=== PATIENT | female | born 1995 | race Caucasian/White ===

== ENCOUNTER 2021-09-09 09:35 | Outpatient (CLI) | payer BC, MEDICAID, SELFPAY ==
[2021-09-09 09:35] VITALS: BMI 39.2
[2021-09-09 10:07] VITALS: BP 119/78; PULSE 93; TEMP 36.1
[2021-09-09 10:30] VITALS: BP 122/71; PULSE 90
[2021-09-09 10:31] LABS: Basophils % 0.2 %; Eosinophils % 0.4 %; Hematocrit 35.6 % (37.0-47.0); Hemoglobin 10.7 g/dL (11.5-15.3); Lymphocytes # 1.5 10^3/uL (0.8-4.8); Lymphocytes % 13.5 %; Mean Corpuscular HGB Conc 30.1 g/dL (30.0-36.0); Mean Corpuscular Hemoglobin 22.5 pg (28.0-34.0); Mean Corpuscular Volume 74.9 fl (81-99); Mean Platelet Volume 10.9 fL (7.4-10.4); Monocytes # 0.6 10^3/uL (0.2-0.9); Monocytes % 5.7 %; Neutrophils # 8.58 10^3/uL (1.8-7.7); Neutrophils % 79.1 %; Nucleated Red Blood Cells % 0 %; Platelet Count 319 10^3/cmm (130-400); Red Blood Count 4.75 10^6/uL (4.1-5.3); Red Cell Distribution Width 15.6 % (12.1-15.1); White Blood Count 10.8 10^3/uL (4.0-10.0)
[2021-09-09 10:38] LABS: Glucose Urine UA Norm (Normal); Ketones Urine 1+ (Negative); Protein Urine Neg (Negative); Specific Gravity, Urine 1.015 (1.005-1.030); Urine Appearance SL Hazy (CLEAR); Urine Color Yellow (Yellow); pH Urine 6.5 (5-7)
[2021-09-09 10:39] LABS: Add Urine Microscopic? YES; Bilirubin Urine Neg (Negative); Blood Urine Neg (Negative); Leukocyte Esterase Urine 1+ (Negative); Nitrate Urine Negative (Negative); Urobilinogen Urine 1 mg/dL (Negative)
[2021-09-09 10:43] VITALS: BP 112/66; PULSE 97
[2021-09-09 10:48] LABS: RBC Urine 0-4 /hpf (0-2); WBC Urine 15-25 /hpf (0-5)
[2021-09-09 10:49] LABS: Alanine Aminotransferase 16 U/L (0-33); Albumin Level 3.2 g/dL (3.5-5.2); Alkaline Phosphatase 242 IU/L (35-105); Anion Gap 18.1 (5-19); Aspartate Amino Transferase 15 U/L (0-32); Bacteria Urine 1+ /hpf; Blood Urea Nitrogen 7 mg/dL (6-20); Calcium 8.2 mg/dL (8.5-10.5); Carbon Dioxide 17 mmol/L (22-29); Chloride 104 mmol/L (98-107); Coarse Granular Casts Urine RARE /lpf; Globulin 3.6 g/dL (1.3-4.6); Glomerular Filtration Rate 194.5 mL/min (90-130); Glucose 78 mg/dL (65-115); Mucus Urine TRACE /hpf; Osmolality Calculated 277 mOsm/kg (285-295); Potassium 4.1 mmol/L (3.5-5.1); Sodium 135 mmol/L (136-145); Total Bilirubin 0.4 mg/dL (0.15-1.2); Total Protein 6.8 g/dL (6.6-8.7); Uric Acid 3.2 mg/dL (2.4-5.7)
[2021-09-09 10:50] LABS: Add Urine Culture? Yes
[2021-09-09 10:52] LABS: Urine Creatinine 124 mg/dL (28-217)
[2021-09-09 10:57] LABS: UPRO/UCREAT Ratio 0.29 mg/mg CR; Urine Protein Random 36 mg/dL
[2021-09-09 10:58] VITALS: BP 113/65; PULSE 88
== END 2021-09-09 11:15 | disposition home or self-care (01) ==
LOC: OPOB 09:44 → OBGYN 09:45
PROVIDERS: Visit Provider Obstetrics & Gynecology
DX: O16.9 Unspecified maternal hypertension, unspecified trimester (principal); Z3A.00 Weeks of gestation of pregnancy not specified
CPT/HCPCS: 36415; 59025; 80053; 81000; 81001; 82570; 84156; 84550; 85025; 87086; 99211

== ENCOUNTER 2021-09-17 03:00 | Inpatient (IN) | payer BC, MEDICAID, SELFPAY ==
[2021-09-17] VITALS (41 sets, daily range): BP systolic 94–150; BP diastolic 52–94; PULSE 69–105; RESP 15–18; TEMP 36.1–37.3; O2SAT 97–100; BMI 44.3
[2021-09-17] MEDS: ampicillin 2,000 MG in sodium chloride 0.9% (plus) 50 ML 100 MG IV (02:44)
[2021-09-17] MEDS: lactated ringers 1,000 ML 999 ML IV (02:44)
[2021-09-17 02:54] LABS: Basophils % 0.2 %; Eosinophils % 0.3 %; Hematocrit 34.9 % (37.0-47.0); Hemoglobin 10.5 g/dL (11.5-15.3); Lymphocytes # 2.1 10^3/uL (0.8-4.8); Lymphocytes % 15.3 %; Mean Corpuscular HGB Conc 30.1 g/dL (30.0-36.0); Mean Corpuscular Hemoglobin 22.7 pg (28.0-34.0); Mean Corpuscular Volume 75.4 fl (81-99); Mean Platelet Volume 11.5 fL (7.4-10.4); Monocytes # 1.1 10^3/uL (0.2-0.9); Monocytes % 7.9 %; Neutrophils # 10.25 10^3/uL (1.8-7.7); Neutrophils % 75.4 %; Nucleated Red Blood Cells % 0 %; Platelet Count 344 10^3/cmm (130-400); Red Blood Count 4.63 10^6/uL (4.1-5.3); White Blood Count 13.6 10^3/uL (4.0-10.0)
[2021-09-17] MEDS: ondansetron 2 mg/ML SDV 2 mL 4 MG IVP (03:04)
[2021-09-17 04:16] LABS: Amphetamines Screen Urine Negative (Negative); Barbiturates Screen Urine Negative (Negative); Benzodiazepines Screen Urine Negative (Negative); Cocaine Screen Urine Negative (Negative); Opiate Screen Urine Negative (Negative); PCP Screen Urine Negative (Negative); THC Screen Urine Negative (Negative)
--- NOTE | 2021-09-17 04:20 | ANES.PROC ---
Anesthesia Procedures Procedure/Date: 09/17/21 labor epidural Epidural: Time Out Performed: Yes Consents Signed: Procedure Consent Consent: from patient, risks and benefits reviewed and patient agrees to proceed Lumbar Level: L3-L4 Epidural position: sitting Epidural procedure: sterile prep of area, 1% lidocaine to numb the area, 18 g needle, negative for paresthesia passed, test dose given, 1.5% xylocaine 1:200k epi, placed PCEA, no systemic response, sterile dressing applied, L.U.D. no apparent complications and 0.2% Ropiavacaine @ mls/hr (13) Additional Comments: OLAYINKA at 7.5 taped at 15 at skin
--- NOTE | 2021-09-17 04:21 | P.ANESASSM_ITS ---
Pre-Anesthetic Assessment Pre-Anesthetic Assessment: Height/Weight: Height 1.7 m Weight 128.367 kg Temp Pulse Resp BP Pulse Ox 98.5 F 88 15 137/70 99 09/17/21 02:19 09/17/21 04:19 09/17/21 02:19 09/17/21 04:19 09/17/21 04:14 Preop Diagnosis: IUP Proposed Procedure: labor epidural Was Beta Abimael taken within 24 hours: N/A Was Clonidine taken within 24 hours: N/A Social: Social History: No alcohol and No tobacco Exam: Pre-Anes Outpt Exam: alert and oriented x 3 Airway: Submandibular: WNL Cervical ROM: WNL MP: 3 Dentition: Full History/ROS: No significant complaints Anesthetic Plan: ASA status: 2 Anesthesia: Anesthesia Evaluation and Regional (specify below) (labor epidural) Risk of > 500 ml blood loss (7ml/kg in children): No Meds/Allergies Current Medications: Current Medications Generic Name Dose Route Start Last Admin Trade Name Freq PRN Reason Stop Dose Admin Lactated Ringer's 1,000 mls @ 999 m ls/hr 09/17/21 02:24 09/17/21 02:44 Lactated Ringers IV 999 mls/hr .Q1H1M PRN Administration LABOR PAIN Ondansetron HCl 4 mg 09/17/21 02:19 09/17/21 03:04 Ondansetron 2 Mg /Ml Sdv 2 Ml IVP 4 mg Q4H PRN Administration NAUSEA AND VOMITI NG PFSH Anesthesia PFSH: Medical History (Updated 09/12/21 @ 20:12 by Cony Russell MD) No pertinent past medical history Surgical History (Updated 09/12/21 @ 20:12 by Cony Russell MD) No pertinent past surgical history Family History (Updated 09/09/21 @ 08:13 by Analisa Noriega LPN) Mother Hypertension Hypothyroidism Denies family history of Diabetes CAD (coronary artery disease) Clotting disorder Hyperlipidemia Chronic kidney disease (CKD) Bleeding disorder Cancer Stroke Female Reproductive History: : 3 Data Anesthesia CBC & Chem 7: 09/17/21 02:20 Other Labs: Laboratory Results - last 48 hr 09/17/21 09/17/21 02:20 03:38 WBC 13.6 H RBC 4.63 Hgb 10.5 L Hct 34.9 L MCV 75.4 L MCH 22.7 L MCHC 30.1 RDW 16.0 H Plt Count 344 MPV 11.5 H Neut % (Auto) 75.4 Lymph % (Auto) 15.3 [place] % (Auto) 7.9 Eos % (Auto) 0.3 Baso % (Auto) 0.2 Neut # (Auto) 10.25 H Lymph # (Auto) 2.1 [place] # (Auto) 1.1 H Eos # (Auto) 0.0 Baso # (Auto) 0.0 Nucleated RBC % (auto) 0 Nucleated RBCs # 0.0 Urine Opiates Screen Negative Ur Barbiturates Screen Negative Ur Phencyclidine Scrn Negative Ur Amphetamines Screen Negative U Benzodiazepines Scrn Negative Urine Cocaine Screen Negative U Marijuana (THC) Screen Negative Cardiac Studies: No Data to Display
--- NOTE | 2021-09-17 04:53 | PM.OPHPUD ---
Labor & Delivery H&P Update Date of Procedure: September 17, 2021 Date H&P Performed: 09/16/21 H&P update information: I have reviewed H&P completed within last 30 days, I have examined patient prior to procedure and Changes to prior documentation as noted here Changes to previous documentation: The patient has made cervical change since her exam earlier today. SVE: /-1 Admission Diagnosis: Preop diagnosis: IUP @38w6d Related Problem List Diagnoses (1) Normal : (2) Consultation for sterilization:
--- NOTE | 2021-09-17 05:00 | PM.DELIVERY ---
Delivery Note: Date of delivery: September 17, 2021 Pre-delivery diagnoses: iup@38w6d, active labor Post-delivery diagnoses: same Procedure: Op report anesthesia: Epidural Delivering Physician: [email or web address] Estimated blood loss (mL): 5 Findings: term male in the straight OA presentation Pre-Delivery Course: The patient was admitted in active labor. She had a GBS swab done a week ago, but no results are reported. She was started on GBS prophylaxis. She received an epidural for pain management. She had SROM and her cervix was found to be complete. This was a precipitous, physician attended delivery, as the patient had only been in the hospital for about 2 hours Delivery: The patient had complete cervical dilation and began to push. The head delivered in the straight OA position over an intact perineum under epidural anesthesia. The nose and mouth were bulb suctioned. The shoulders and body delivered atraumatically. The baby was placed onto the mother's abdomen. The cord was clamped and cut. Cord blood was obtained. The placenta delivered spontaneously. It was inspected and found to be intact. Inspection of the perineum revealed no lacerations. Estimated blood loss 5 mL. Apgars on baby were 8 at 1 minute and 9 at 5 minutes. Weight of baby is pending. Mother and baby were stable post delivery. History History History 3 Term 2 Miscarriages/Ectopic 0 0 Living Children 2 A&P Assessment and plan (1) Normal : Status: Acute (2) Consultation for sterilization: Status: Acute Coding Level of Care Code Acute Installer Interior Assemblies for [facility] Fwd Diagnoses Normal Z34.90 Consultation for sterilization Z30.09
[2021-09-17 06:17] LABS: Adenovirus Not Detected (NOT DETECT); Chlamydia Pneumoniae Not Detected (NOT DETECT); Coronavirus 229E,HKU1,NL63,OC4 Not Detected (NOT DETECT); Human Metapneumovirus Not Detected (NOT DETECT); Human Rhinovirus/Enterovirus Not Detected (NOT DETECT); Influenza A Not Detected (NOT DETECT); Influenza A H1 Not Detected (NOT DETECT); Influenza A H1-2009 Not Detected (NOT DETECT); Influenza A H3 Not Detected (NOT DETECT); Influenza B Not Detected (NOT DETECT); Mycoplasma Pneumoniae Not Detected (NOT DETECT); Parainfluenza Virus Type 1 Not Detected (NOT DETECT); Parainfluenza Virus Type 2 Not Detected (NOT DETECT); Parainfluenza Virus Type 3 Not Detected (NOT DETECT); Parainfluenza Virus Type 4 Not Detected (NOT DETECT); Respiratory Syncytial Virus A Not Detected (NOT DETECT); Respiratory Syncytial Virus B Not Detected (NOT DETECT); SARS-COV-2 Not Detected (NOT DETECT)
--- NOTE | 2021-09-17 11:14 | ANES.PREANE2 ---
Pre-Anesthetic Assessment Pre-Anesthetic Assessment: Height/Weight: Height 1.7 m Weight 128.367 kg Temp Pulse Resp BP Pulse Ox 98.1 F 80 15 131/75 100 09/17/21 05:52 09/17/21 09:49 09/17/21 02:19 09/17/21 09:49 09/17/21 04:29 Preop Diagnosis: IUP @38w6d, desires sterilization Proposed Procedure: Operation Date: 09/17/21 11:30 Proposed Procedures p Bilateral Tubal Ligation(Not Applicable) - Cony Russell MD Was Beta Abimael taken within 24 hours: N/A Was Clonidine taken within 24 hours: N/A Social: Social History: No alcohol and No tobacco Exam: Pre-Anes Outpt Exam: alert, oriented x 3, clear to auscultation bilaterally and regular rate & rhythm Airway: Submandibular: WNL Cervical ROM: WNL MP: 2 Dentition: Full History/ROS: No significant complaints Pulmonary: Pulmonary: None reported CV/HEM: CV/HEM: None reported : : None reported Hepatic: Hepatic: None reported GI: GI: None reported Metabolic: Metabolic: None reported Musc/skel: Musc/skel: None reported Neuropsych: Neuropsych: None reported Anesthetic Plan: ASA status: 2 Anesthesia: Regional (specify below) Other: Spinal. Other Pertinent Information: Post delivered this morning on 09/17/20 Meds/Allergies Current Medications: Current Medications Generic Name Dose Route Start Last Admin Trade Name Freq PRN Reason Stop Dose Admin Lactated Ringer's 1,000 mls @ 999 m ls/hr 09/17/21 02:24 09/17/21 02:44 Lactated Ringers IV 999 mls/hr .Q1H1M PRN Administration LABOR PAIN Ondansetron HCl 4 mg 09/17/21 02:19 09/17/21 03:04 Ondansetron 2 Mg /Ml Sdv 2 Ml IVP 4 mg Q4H PRN Administration NAUSEA AND VOMITI NG PFSH Anesthesia PFSH: Medical History (Updated 09/12/21 @ 20:12 by Cony Russell MD) No pertinent past medical history Surgical History (Updated 09/12/21 @ 20:12 by Cony Russell MD) No pertinent past surgical history Family History (Updated 09/09/21 @ 08:13 by Analisa Noriega LPN) Mother Hypertension Hypothyroidism Denies family history of Diabetes CAD (coronary artery disease) Clotting disorder Hyperlipidemia Chronic kidney disease (CKD) Bleeding disorder Cancer Stroke Female Reproductive History: : 3 Data Anesthesia CBC & Chem 7: 09/17/21 02:20 Other Labs: Laboratory Results - last 48 hr 09/17/21 09/17/21 09/17/21 02:20 03:38 04:13 WBC 13.6 H RBC 4.63 Hgb 10.5 L Hct 34.9 L MCV 75.4 L MCH 22.7 L MCHC 30.1 RDW 16.0 H Plt Count 344 MPV 11.5 H Neut % (Auto) 75.4 Lymph % (Auto) 15.3 [place] % (Auto) 7.9 Eos % (Auto) 0.3 Baso % (Auto) 0.2 Neut # (Auto) 10.25 H Lymph # (Auto) 2.1 [place] # (Auto) 1.1 H Eos # (Auto) 0.0 Baso # (Auto) 0.0 Nucleated RBC % (auto) 0 Nucleated RBCs # 0.0 Urine Opiates Screen Negative Ur Barbiturates Screen Negative Ur Phencyclidine Scrn Negative Ur Amphetamines Screen Negative U Benzodiazepines Scrn Negative Urine Cocaine Screen Negative U Marijuana (THC) Screen Negative Coronavirus 229E (PCR) Not detected SARS-CoV-2 (PCR) Not detected Cardiac Studies: No Data to Display
[2021-09-17] MEDS: sodium chloride 0.9% 1,000 ML 30 ML IV (11:25)
[2021-09-17] MEDS: acetaminophen 1,000 MG/100 ML PIGGYBACK 400 MG IV (11:25)
[2021-09-17] MEDS: gabapentin 300 mg Capsule PO (11:30)
[2021-09-17] MEDS: ketorolac 30 mg/mL INJ IVP (11:41)
[2021-09-17] MEDS: ceFAZolin 3,000 MG in sodium chloride 0.9% (100 ml) 100 ML 200 MG IV (12:08)
--- NOTE | 2021-09-17 13:43 | PC.NURSE ---
1045 PT OFF FLOOR FOR TUBAL VIA WHEELCHAIR ESCORTED BY [facility] FOR OR.
--- NOTE | 2021-09-17 13:44 | W.PM.OPSUD ---
Surgery/Procedure H&P Update DATE OF PROCEDURE: September 17, 2021 DATE H&P PERFORMED: 09/16/21 H&P UPDATE INFORMATION: I have reviewed H&P completed within last 30 days, I have examined patient prior to procedure and Changes to prior documentation as noted here CHANGES TO PREVIOUS DOCUMENTATION: The patient desires sterilization PREOP DIAGNOSIS: IUP @38w6d, desires sterilization PLANNED PROCEDURE: Operation Date: 09/17/21 11:30 Proposed Procedures p Bilateral Tubal Ligation(Not Applicable) - Cony Russell MD
--- NOTE | 2021-09-17 13:45 | PM.OP ---
Operative Report Date of procedure: September 17, 2021 Pre-op Diagnosis: IUP @38w6d, desires sterilization Post-op diagnosis: same Post-op Findings: morbidly obese woman with normal left fallopian tube and ovary. Right tube and ovary adhered to the pelvic sidewall Procedure Done: bilateral tubal ligation Specimens removed/disposition: bilateral segments of fallopian tubes to pathology Surgeon: Cony Russell Anesthesia: Other (spinal) Estimated blood loss (mL): 10 IV fluids (mL): 500 Complications: none Condition: stable Disposition: floor Procedure: The patient was taken to the operating room where general anesthesia was administered and found to be adequate. She was prepped and draped in the usual fashion in the dorsal supine position. An infraumbilical incision was made and carried down to the underlying layer of fascia. The fascia was nicked in the midline and the peritoneum entered sharply with the Metzenbaum scissors. The the patient was tilted to the right and the fallopian tube identified. The left fallopian tube was grasped with a Deja clamp and the clamp was walked down the tube to the fimbria. An area mid tube was grasped and elevated and a window was made in the mesosalpinx. The fallopian tube was doubly ligated and then a segment of the tube was removed with the Metzenbaum scissors. There was excellent hemostasis. The fallopian tube was returned to the abdomen. The patient was then tilted to the left and using the same procedure the fallopian tube was grasped and elevated. It was adherent to the pelvic sidewall. I could visualize the fimbria. A segment in the mid tube was elevated a suture placed around it and a section removed with the Metzenbaum scissors. A second suture was placed lower than the first to doubly tie the fallopian tube and prevent growth of the tubes together. The fallopian tube was returned to the abdomen. There was excellent hemostasis. The fascia was closed with 0 Vicryl. The skin was closed with 3-0 Vicryl. The patient tolerated the procedure well. Sponge lap and needle counts were correct x3. She was taken to the recovery room in stable condition.
--- NOTE | 2021-09-17 13:57 | ANE.PACU2 ---
Inpatient post-anesthesia follow up: Airway intact: Yes Vital signs: Temperature 97 F Pulse Rate 77 Respiratory Rate 16 Blood Pressure 118/68 Pulse Oximetry 100 Oxygen Delivery Me thod Room Air Oxygen Flow Rate Fraction of Inspir ed Oxygen Hydration adequate: Yes Nausea and vomiting: No Pain level: 1 Mental status: Baseline
[2021-09-17] MEDS: docusate sodium 100 mg Capsule PO (17:20)
[2021-09-17 17:22] LABS: Hematocrit 33.8 % (37.0-47.0); Mean Corpuscular HGB Conc 29.6 g/dL (30.0-36.0); Mean Corpuscular Hemoglobin 22.2 pg (28.0-34.0); Mean Corpuscular Volume 74.9 fl (81-99); Platelet Count 313 10^3/cmm (130-400); Red Blood Count 4.51 10^6/uL (4.1-5.3); White Blood Count 14.6 10^3/uL (4.0-10.0)
[2021-09-17] MEDS: ibuprofen 800 mg tablet PO (20:54)
[2021-09-18 00:20] VITALS: BP 119/80; PULSE 77; RESP 18; O2SAT 98
[2021-09-18 04:09] VITALS: BP 136/89; PULSE 80; RESP 18; TEMP 36.6
[2021-09-18] MEDS: docusate sodium 100 mg Capsule PO (08:38)
[2021-09-18] MEDS: prenatal vitamin Capsule 1 CAP PO (08:38)
[2021-09-18] MEDS: ibuprofen 800 mg tablet PO ×2 (08:38→14:59)
--- NOTE | 2021-09-18 10:02 | P.PN_ITS ---
DATA COLLECTION SPECIALIST Subjective Subjective: Interval history: pp day #1, doing well. Labor: Monitor Mode: External Contraction Pattern: Regular Status: Category I Vitals/I&O/Wt Last Vital Signs Temp 97.9 F 09/18/21 04:09 Pulse 80 09/18/21 04:09 Resp 18 09/18/21 04:09 BP 136/89 09/18/21 04:09 Pulse Ox 98 09/18/21 00:20 09/17/21 09/18/21 09/18/21 22:59 06:59 14:59 Intake Total 480 / 1180 Balance 480 / 1170 Weight last 48 hrs Weight 283 lb Data : 09/17/21 17:10 Coding Level of Care Code Acute Information Systems Administrator for [facility]
[2021-09-18 10:09] VITALS: BP 128/84; PULSE 70; RESP 16; TEMP 36.6
--- NOTE | 2021-09-18 10:10 | P.PN_ITS ---
THERAPEUTIC RIDING INSTRUCTOR Subjective Subjective: Interval history: pp day 1 following uncomplicated vaginal delivery. pod #1 pp tubal ligation. Doing well without complaints and wants to go home. Medications: Reviewed: Yes Post /CS: Patient comments OB post-: no complaints, pain well co ntrolled, tolerating diet and flatus present Mason baby status: doing well and nursing well Mason feeding status: exclusively breast feeding Other Post-Op: Subjective CASTING INSPECTOR Post-Op: patient desires discharge Vitals/I&O/Wt Last Vital Signs Temp 97.9 F 09/18/21 04:09 Pulse 80 09/18/21 04:09 Resp 18 09/18/21 04:09 BP 136/89 09/18/21 04:09 Pulse Ox 98 09/18/21 00:20 09/17/21 09/18/21 09/18/21 22:59 06:59 14:59 Intake Total 480 / 1180 Balance 480 / 1170 Weight last 48 hrs Weight 283 lb Physical Exam Const: COMMON NORMALS: no acute distress GENERAL APPEARANCE: cooperative and comfortable ORIENTATION/CONSCIOUSNESS: Yes oriented to person and Yes oriented to place HENMT: COMMON NORMALS: normocephalic, hearing grossly normal bilaterally and moist oral mucous membranes HEAD & SCALP: normocephalic Eye: COMMON NORMALS: conjunctivae normal and no scleral icterus CONJUNCTIVA: Yes conjunctivae normal Neck/C-Spine: COMMON NORMALS: no JVD Resp: COMMON NORMALS: normal respiratory effort and No use of accessory muscles EFFORT & INSPECTION: Yes able to speak in complete sentences Cardio: COMMON NORMALS: no JVD and regular rate RATE: regular rate GI: COMMON NORMALS: Soft to palpation PALPATION: Yes Soft to palpation OTHER: mild normal incisional tenderness, incision well ap[proximated with mild echymosis and no drainage. Healing well. : OTHER: normal lochia Extremity: COMMON NORMALS: normal to inspection and full ROM NARRATIVE EXT REMITY EXAM: no clubbing, cyanosis, mild dependent edema bilat le Neuro: COMMON NORMALS: no focal motor deficits and no sensory deficits noted SENSORIUM/ORIENTATION: Yes oriented to person and Yes oriented to place Psych: COMMON NORMALS: mental status grossly normal, Normal thought process present and cooperative THOUGHT PROCESS: Normal thought process present Sepsis: Is patient septic: No Data : 09/17/21 17:10 A&P Assessment and plan (1) Normal spontaneous vaginal delivery: Status: Acute (2) Encounter for postoperative care: Status: Acute Additional A&P Information discharge home wound care instructions and pp instructions given f/u 2 wks Attestations Medical Necessity Statement*: admitted for active labor and delivered via uncomplicated with pp tubal ligation Time Spent in Patient Care: 16 - 35 minutes (>than 50% of time spent in counselling and/or direct pt care on unit) . Coding Level of Care Code Acute Sales Support Associate for [facility] Fwd Exam Comprehensive Diagnoses Normal spontaneous vaginal delivery O80 Encounter for postoperative care Z48.89
[2021-09-18 15:10] VITALS: BP 130/70; PULSE 75; RESP 16; TEMP 36.8
--- NOTE | 2021-09-18 16:06 | PM.OBGYDC ---
Discharge Providers IRRIGATION MANAGER Date of Admission: 09/17/21 03:00 Date of Discharge: 09/18/21 Attending Provider at Admission: Gabriela Rosa D.O. Attending Provider at Discharge: Gabriela Rosa D.O. Consults: none Primary IRRIGATION MANAGER: Meme Russell Diagnoses at Discharge Discharge Diagnosis (1) Normal spontaneous vaginal delivery: Status: Acute (2) Encounter for postoperative care: Status: Acute Reason for Visit Reason for Visit: Contractions Hospital Course Hospital Course admitted in active labor and had without complication followed by pptl with subsequent discharge pp day 1. Information Peripartum Data: Infant Delivery Method: Vaginal Physical Exam Narrative: doing well and wants to go home Const: COMMON NORMALS: no acute distress GENERAL APPEARANCE: cooperative and comfortable ORIENTATION/CONSCIOUSNESS: Yes oriented to person and Yes oriented to place HENMT: COMMON NORMALS: normocephalic, hearing grossly normal bilaterally and moist oral mucous membranes HEAD & SCALP: normocephalic Eye: COMMON NORMALS: conjunctivae normal and no scleral icterus CONJUNCTIVA: Yes conjunctivae normal Neck/C-Spine: COMMON NORMALS: no JVD Resp: COMMON NORMALS: normal respiratory effort and No use of accessory muscles EFFORT & INSPECTION: Yes able to speak in complete sentences Cardio: COMMON NORMALS: no JVD and regular rate RATE: regular rate GI: COMMON NORMALS: Soft to palpation PALPATION: Yes Soft to palpation OTHER: mild normal incisional tenderness, incision well ap[proximated with mild echymosis and no drainage. Healing well. : OTHER: normal lochia Extremity: COMMON NORMALS: normal to inspection and full ROM NARRATIVE EXTREMITY EXAM: no clubbing, cyanosis, mild dependent edema bilat le Neuro: COMMON NORMALS: no focal motor deficits and no sensory deficits noted SENSORIUM/ORIENTATION: Yes oriented to person and Yes oriented to place Psych: COMMON NORMALS: mental status grossly normal, Normal thought process present and cooperative THOUGHT PROCESS: Normal thought process present History History History 3 Term 3 Miscarriages/Ectopic 0 0 Living Children 3 Discharge Data Studies Completed and Pending Completed Studies During Hospitalization Category Date Time Status Pathology: Surgical [PTH] Routine Pth 09/17/21 13:42 Completed Laboratory Results WBC 14.6 10^3/uL (4.0-10.0) H 09/17/21 17:10 RBC 4.51 10^6/uL (4.1-5.3) 09/17/21 17:10 Hgb 10.0 g/dL (11.5-15.3) L 09/17/21 17:10 Hct 33.8 % (37.0-47.0) L 09/17/21 17:10 MCV 74.9 fl (81-99) L 09/17/21 17:10 MCH 22.2 pg (28.0-34.0) L 09/17/21 17:10 MCHC 29.6 g/dL (30.0-36.0) L 09/17/21 17:10 RDW 16.0 % (12.1-15.1) H 09/17/21 17:10 Plt Count 313 10^3/cmm (130-400) 09/17/21 17:10 MPV 11.0 fL (7.4-10.4) H 09/17/21 17:10 Neut % (Auto) 75.4 % 09/17/21 02:20 Lymph % (Auto) 15.3 % 09/17/21 02:20 [place] % (Auto) 7.9 % 09/17/21 02:20 Eos % (Auto) 0.3 % 09/17/21 02:20 Baso % (Auto) 0.2 % 09/17/21 02:20 Neut # (Auto) 10.25 10^3/uL (1.8-7.7) H 09/17/21 02:20 Lymph # (Auto) 2.1 10^3/uL (0.8-4.8) 09/17/21 02:20 [place] # (Auto) 1.1 10^3/uL (0.2-0.9) H 09/17/21 02:20 Eos # (Auto) 0.0 10^3/uL (0.0-0.8) 09/17/21 02:20 Baso # (Auto) 0.0 10^3/uL (0.0-0.1) 09/17/21 02:20 Nucleated RBC % (auto) 0 % 09/17/21 02:20 Nucleated RBCs # 0.0 /100WBC 09/17/21 02:20 Urine Opiates Screen Negative ng/mL (Negative) 09/17/21 03:38 Ur Barbiturates Screen Negative ng/mL (Negative) 09/17/21 03:38 Ur Phencyclidine Scrn Negative ng/mL (Negative) 09/17/21 03:38 Ur Amphetamines Screen Negative ng/mL (Negative) 09/17/21 03:38 U Benzodiazepines Scrn Negative ng/mL (Negative) 09/17/21 03:38 Urine Cocaine Screen Negative ng/mL (Negative) 09/17/21 03:38 U Marijuana (THC) Screen Negative ng/mL (Negative) 09/17/21 03:38 Coronavirus 229E (PCR) Not detected (NOT DETECT) 09/17/21 04:13 SARS-CoV-2 (PCR) Not detected (NOT DETECT) 09/17/21 04:13 Procedures Performed Vitals Last Vital Signs Temp 98.2 F 09/18/21 15:10 Pulse 75 09/18/21 15:10 Resp 16 09/18/21 15:10 BP 130/70 09/18/21 15:10 Pulse Ox 98 09/18/21 00:20 Discharge Plan Discharge Patient Disposition: Home Condition: Stable Prescriptions: New ibuprofen 800 mg Tablet 800 mg PO TID Qty: 60 0RF Discontinued DHA 200 mg capsule 200 mg PO DAILY 0RF Discharge Orders: Discharge Order (Routine); Ordered 09/18/21 Ordered By: Gabriela Rosa Discharge Diet: Regular Discharge Activity: Limit activity as instructed Patient Instructions: Bleeding (DC), Preeclampsia and Eclampsia After Delivery (GEN), Hemorrhage (DC), OB Discharge Report, OB Laproscopic Surgery - C, OB Care at Home, Opioid Safety, OB Home Care, OB Proud Parent Packet, OB Vaginal Deliveries - [facility], Depression Discharge Attestations IRRIGATION MANAGER Time Spent in Discharge Care*: less than 30 min Coding Level of Care Code Acute Repeat Photocomposing Machine Operator for [facility] Fwd Diagnoses Normal spontaneous vaginal delivery O80 Encounter for postoperative care Z48.89
== END 2021-09-18 15:10 | disposition home or self-care (01) | DRG 798 ==
LOC: OPOB 05:03 → OBGYN 05:03
PROVIDERS: Admitting Provider Obstetrics & Gynecology; Visit Provider Obstetrics & Gynecology
PROC: 10E0XZZ Delivery of Products of Conception, External Approach (ICD-10-PCS; CPT 58605; principal; 2021-09-17 11:30)
DX: O99.214 Obesity complicating childbirth (principal); Z37.0 Single live birth; E66.01 Morbid (severe) obesity due to excess calories; Z3A.38 38 weeks gestation of pregnancy; Z30.2 Encounter for sterilization
CPT/HCPCS: 12345; 36415; 59025; 59409; 80306; 85025; 85027; 87635; 88302; 96374; 96375; 99211; J0290; J0690; J1885; J2405; J3490; J7030